=== PATIENT | female | born 1960 | race Caucasian/White ===

== ENCOUNTER → 2016-10-24 | Outpatient (CLI) | payer BC ==
[~2016-10-24] MED LIST: ASPIRIN EC81 MG PO; DEPAKOTE DELAY250 MG PO
--- NOTE | ~2016-10-24 | ESTC ---
Cardiac Perfusion Imaging Demographics Patient Name IRLANDA Goodrich Gender Female Patient Number [id number] Race Visit Number [id number] Ethnicity Corporate ID Room Number Accession Number [id number] Height 66 inches Date of 1960 Weight 195 pounds Heike Lucas MD Interpreting Ysabel Mcpherson MD Date of study 10/24/2016 Physician Supervising /ANAYA [place] Technologist Jono Santos APRN Ordering Physician Ysabel Mcpherson MD Stress production maintenance technician Stress ECG Reading Adal [place] Nurse Chris Charlie Physician IRVIN Medications Reviewed with Patient prior to Procedure. Procedure Procedure Type: Nuclear Stress Test:Pharmacological, Lexiscan, Cardiolite Stress Test Procedure Start time: 10/24/2016 09:19 Indications: Chest discomfort. Risk Factors The patient risk factors include:family history of premature CAD. Conclusions Summary Cardiolite SPECT images demonstrates an inducible reversible defect of moderate severity involving the mid to distal anterior wall . NO evidence of underlying fixed defect. Normal TID ratio Gated images demonstrate normal left ventricular systolic function without inducible wall motion abnormalities. LVEF is 75% Stress Protocols Resting ECG RSR without ST or T wave changes. There are Q waves noted in Lead II, III, AVF V5, V6. Resting HR:90 bpm Resting BP:134/70 mmHg Pre-stress physical exam: Complains of intermittent chest pain with or without ST or T wave changes. Stress Protocol:Pharmacologic Peak HR:130 bpm HR response: Appropriate Peak BP:138/77 mmHg BP response: Appropriate Predicted HR: 164 bpm HR/BP product:52363 % of predicted HR: 79 Reason for termination:Infusion complete ECG Findings No ECG changes suggestive of ischemia. Symptoms Nausea, Flushing, mild shortness of breath. Stress Interpretation Appropriate hemodynamic response to Lexiscan. No significant ST-T wave changes with Lexiscan. ECG portion is negative for ischemia by diagnostic criteria. Stress supervision and interpretation provided by Jayne Galeas APRN . Imaging Results Summed scores - Summed stress score: 16 - Summed rest score: 0 - Summed difference score: 16 Stress ejection Ejection fraction:75 % EDV :88 ml ESV :22 ml Stroke volume :66 ml LV mass :126 gr Imaging Protocols Rest Stress Isotope:Tc99m Sestamibi IV Isotope: Tc99m Sestamibi IV Isotope dose:13.4 mCi Isotope dose:42.7 mCi Date:10/24/2016 07:33 Date:10/24/2016 09:44 Technique: SPECT Technique: Gated Supine SPECT Supine Scan Time:45-60 minutes post Scan Time:45-60 minutes post injection injection Procedure Medications - Regadenoson (Lexiscan) 0.4 mg IV over 10-15 sec. I.V. 0.4 mg. Medications administered per verbal order and read back to physician prior to administration. Medical History Admission Data Admission date: 10/24/2016 Admission Time: 07:02 Hospital Status: Outpatient. Signatures dtt: Ky Grady (cardio) dtd: 10/24/16 0919 Physician Self Edit
== END ==
LOC: GRAD 07:02
DX: R07.89 Other chest pain (principal); Z79.899 Other long term (current) drug therapy; Z82.49 Family history of ischemic heart disease and other diseases of the circulatory system; G40.909 Epilepsy, unspecified, not intractable, without status epilepticus; F39 Unspecified mood [affective] disorder
CPT/HCPCS: A9500; J2785

== ENCOUNTER 2016-11-08 05:58 | Outpatient (CLI) | payer BC ==
[~2016-11-08] VITALS: Ht 167.6 cm; Wt 84.9 kg
--- NOTE | ~2016-11-08 | CATH ---
Cardiac Diagnostic Report Demographics Patient Name IRLANDA Goodrich Gender Female Date of 1960 Age 56 year(s) Patient Number [id number] Date of Study 11/08/2016 Visit Number [id number] Room Number G63[address] [place] [id number] Ht 167.64 cm Wt 84.9 kg Referring Ysabel Mcpherson MD Primary Physician Physician Heike Lucas MD Performing Ysabel Mcpherson MD Secondary Physician Physician Diagnostic Ysabel Mcpherson MD Assisting Physician Physician Interventional Physician Scheduling Manager Physician Findings and Conclusions Diagnostic Findings and Conclusion Nonobstructive CAD. Normal LV function. Diagnostic Recommendations Medical therapy. Routine post Perclose. Procedure Description The patient was brought to the diagnostic cardiac catheterization-EP laboratory in the fasting, non-sedated state. Informed consent was obtained in the written and verbal form after the risks and benefits were explained. The patient had no further questions and agreed to proceed. The planned puncture-incision site(s) were shaved and prepped with ChloraPrep and draped in the usual sterile manner. Conscious sedation, supplemental oxygen, and pain control medications were delivered by a registered nurse under physician guidance. Surface ECG rhythm, blood pressure measurement, and pulse oximetry were monitored throughout the procedure. Arterial access. The access site was infiltrated with lidocaine. The vessel was entered with the Seldinger technique. A sheath was advanced into the vessel and used for catheter placement. Selective left coronary angiography. A catheter was advanced into the left coronary vessel ostium under Fluoroscopic guidance. Contrast was injected by hand. Images were obtained in multiple projections. Selective right coronary angiography. A catheter was advanced into the right coronary vessel ostium under fluoroscopic guidance. Contrast was injected by hand. Images were obtained in multiple projections. Left heart catheterization with ventriculography. A catheter was advanced across the aortic valve to the left ventricle under fluoroscopic guidance. Resting hemodynamics were obtained. With the catheter at the left ventricular apex, contrast was injected. Images were obtained in MONGOLIAN projections. Post-ventriculography LV pressure was obtained. The catheter was gradually withdrawn into the aorta with continuous pressure recording. Arterial artery hemostasis was achieved. The patient was transferred to a regular nursing floor via cart accompanied by a nurse. The patient left the laboratory in stable condition. Diagnostic Cath Status: Elective Procedure Procedure Type Diagnostic procedure:Ventriculogram:, Left, Angiography:, Coronary Angios w/[facility] Indications: Positive nuclear perfusion study. The procedure was explained in detail to the patient. Risks, complications and alternative treatments were reviewed. Written consent was obtained. Medications Reviewed with Patient prior to Procedure. Angiographic Findings Dominance: Right Cardiac Arteries and Lesion Findings LMCA: Normal (0% Stenosis).Large LAD: Normal (0% Stenosis).LAD medium, normal. Diagonal medium, normal. LCx: Normal (0% Stenosis).Circumflex nondominant, medium, normal. OM 1 large, normal. RCA: Normal (0% Stenosis).RCA large, dominant, normal. PL medium, normal. PDA medium, normal. Procedure Data Procedure Date Date: 11/08/2016Start: 07:44 AMEnd: 08:10 AM Entry Locations - Retrograde Percutaneous access was performed through the Right Femoral artery (Primary location). A 6 Fr sheath was inserted. Hemostasis was successfully obtained using Perclose ProGlide ([employer]). Closure Comments: Successfully deployed by Kyle.. Procedure Medications Order and Administration + + +-------+------+ !Time !Medication !Dosage !Route ! + + +-------+------+ !11/08/2016 07:42 AM !Versed !1 mg !I.V. ! + + +-------+------+ !11/08/2016 07:50 AM !Fentanyl !25 mcg !I.V. ! + + +-------+------+ !11/08/2016 07:57 AM !Fentanyl !50 mcg !I.V. ! + + +-------+------+ Devices Used - A6 Fr. BS JL 3.5 Diag. Catheterwas used for:Left coronary angiography. - A6 Fr. BS JR 4 Diag. Catheterwas used for:Right coronary angiography. - A6 Fr. BS Angled Pigtail Diag. Catheterwas used for:Left ventriculography. Contrast Material - Isovue 83682 ml Fluoroscopy Time: Diagnostic: 3:06 minutes. Total: 3:06 minutes. Fluoroscopy Dose: Diagnostic: 627 mGy. Total: 627 mGy. Estimated Blood Loss: 4 ml. Medical History Allergies - No known allergies. Risk Factors The patient risk factors include:last creatinine: 0.8 mg/dl and creatinine clearance: 105.24 ml/min. Admission Data Admission Date: 11/08/2016 Admission Time: 05:58 AM Admit Source: Other Insurance Payors: Private health insurance. Admission Medications + +------+-------+ + + + + !Medication!Dosage!Times !Last !Last !Administered !Comments ! ! ! !Per Day!Delivery !Delivery ! ! ! ! ! ! !Date !Time ! ! ! + +------+-------+ + + + + !Aspirin ! ! ! ! !Yes ! ! !(any) ! ! ! ! ! ! ! + +------+-------+ + + + + Clinical Evaluation Leading to Procedure - The patient's CAD presentation was assessed as: Unstable angina. - The patient's anginal syndrome during the past two weeks was assessed as: Class III according to the [place] Cardiovascular Society Classification System (CCS). [facility] Ventriculography Findings Hyperdynamic EF. LV function assessed as:Normal. Ejection Fraction - Method: LV gram. EF%: 75. Hemodynamics Condition: Rest O2 Consumption: Estimated: 196.82Heart Rate: 85 bpm Pressures (mmHg) +-----+ + !Site !Pressure ! +-----+ + !AO !118/65 (90) ! +-----+ + !AO !122/68 (95) ! +-----+ + !LV !124/0 ,17 ! +-----+ + !LV !124/0 ,19 ! +-----+ + !LV !116/1 ,18 ! +-----+ + !LV !119/0 ,15 ! +-----+ + Shunts Oxygen Values O2 Capacity 208.08 O2 Consumption 196.82 Discharge Data Discharge Date: 11/09/2016 Hospital Status: Outpatient Signatures dtt: Ky Grady (cardio) dtd: 11/08/16 0744 Physician Self Edit
--- NOTE | ~2016-11-08 | HP ---
PATIENT'S NAME: MILLICENT FOURNIERLA Kp [facility] AGE: 56 Y [address] ROOM: [place] [address] LOCATION: GPCU ADMIT DATE: 11/08/2016 History & Physical DISCHARGE DATE: 11/09/2016 FAMILY PHYSICIAN: Rome Burroughs MD ATTENDING PHYSICIAN: Ky Salcido DATE OF SERVICE: REASON FOR CONSULT: Syncope. HISTORY OF PRESENT ILLNESS: This is a 56-year-old female who underwent a left heart catheterization on date of admission, which showed nonobstructive coronary artery disease and normal LV function. After her long bed rest, she got up and had a vasovagal syncopal episode. Her heart rate and blood pressure were low. She was instructed to rest again for a little while, drink plenty of fluids, and had a 2nd episode when she got up to go to the bathroom, therefore she was admitted to the hospital and received IV fluids. She denies any palpitations with these episodes. She has never had presyncope or syncopal episodes prior this. PAST MEDICAL HISTORY: 1. Nonobstructive coronary artery disease with normal ejection fraction. 2. Palpitations. 3. Uterine cancer. 4. Seizure disorder. 5. Mood disorder. PAST SURGICAL HISTORY: She had a left heart catheterization 11/08/2016. ALLERGIES: NONE TO MEDICATION. CURRENT MEDICATIONS: Aspirin 81 mg daily, Depakote 250 mg p.o. b.i.d. SOCIAL HISTORY: She is a nonsmoker. She does not have problems with depression at this time. She uses alcohol socially. She is . She does not have any children. FAMILY HISTORY: Father at 73, he had a CVA, he had a history of hypertension, rheumatoid arthritis. Mother at age 73. She had hypertension and of "lung problems." Paternal grandmother had diabetes mellitus. She has three PATIENT'S NAME: MILLICENT FOURNIERLA Kp [facility] AGE: 56 Y [address] ROOM: [place] [address] LOCATION: GPCU ADMIT DATE: 11/08/2016 History & Physical DISCHARGE DATE: 11/09/2016 FAMILY PHYSICIAN: Rome Burroughs MD ATTENDING PHYSICIAN: Salcido,Ky J brothers, the oldest brother has hypertension and the other two brothers are alive and well. REVIEW OF SYSTEMS: HEAD: No history of headache. EYES: No blurred vision or double vision. EARS: No problems with hearing. NOSE: No epistaxis or rhinorrhea. MOUTH: No gingival bleeding. THROAT: Denies sore throat, hoarseness, or difficulty swallowing. PULMONARY: She denies cough or hemoptysis. CV: As per HPI. GI: Negative for nausea, vomiting, or diarrhea. No melena or hematochezia. No history of GI bleed. GENITOURINARY: Negative for urinary frequency or urgency. No nocturia or frequent urination. ENDOCRINE: No history of hyper or hypothyroidism or diabetes mellitus. NEUROLOGIC: She has had a vasovagal syncopal episode x2. There was no seizure activity noted. She does have a history of seizures, last one has been many years ago. DERMATOLOGIC: No skin, hair, or nail changes that are concerning. HEMATOLOGIC: No history of anemia, leukemia, or cancer. MUSCULOSKELETAL: She denies arthralgias, myalgias, or musculoskeletal disorders. PHYSICAL EXAMINATION: VITAL SIGNS: Her height is 66 inches tall. She weighs 193 pounds. Blood pressure is 106/70, heart rate 77, respirations 18, O2 sats 97%. Her BMI is 31. GENERAL: On exam, she is alert and oriented. Answers questions appropriately. SKIN: Warm, dry, and pink. HEENT: Pupils equal, round, and react briskly. Nose is non-deviated. Oral mucosa is pink and moist. NECK: Soft and supple. No lymphadenopathy. No thyromegaly. JVD is flat. LUNGS: Lung sounds were clear without evidence of wheezes, rales, or rhonchi. CV: Regular with a normal S1, S2 without murmur, rub, or click. ABDOMEN: Soft. Bowel sounds are present. EXTREMITIES: No peripheral edema. No clubbing. No cyanosis. LAB: Prior to her heart catheterization showed a hemoglobin of 15.3, BUN was 30, creatinine 0.8. Sodium 140, potassium was 4.1. ASSESSMENT: PATIENT'S NAME: YADIRA FOURNIER [facility] AGE: 56 Y [address] ROOM: [place] [address] LOCATION: GPCU ADMIT DATE: 11/08/2016 History & Physical DISCHARGE DATE: 11/09/2016 FAMILY PHYSICIAN: Rome Burroughs MD ATTENDING PHYSICIAN: Ky Salcido 1. Vasovagal syncope. We did do orthostatic blood pressures lying 133/69 with a heart rate of 88, sitting 135/65 with a heart rate of 104, standing 136/71 with heart rate of 103. We are going to start normal saline 125 mL an hour. Watch her overnight and continue with her home medications and further recommendations will be forthcoming. The assessment and plan, history of present illness, and physical exam are per Dr. Salcido. DARREN AMARO APRN FOR KY SACLIDO MD TGP/modl /[id number] D: [id number] T: [id number] HISTORY & PHYSICAL
[2016-11-08 18:24] LABS: HEMATOCRIT 42.7 % (33.0-46.0)
== END 2016-11-09 08:45 | disposition disaster alternative care site (69) ==
LOC: GCAT 05:58 → GPCU 05:58 → GPOC 06:00 → GPCU 14:00 → GCAT 11-09 08:45
PROVIDERS: Internal Medicine Interventional Cardiology
PROC: 4A023N7 Measurement of Cardiac Sampling and Pressure, Left Heart, Percutaneous Approach (ICD-10-PCS; principal; 2016-11-09)
PROC: B216YZZ Fluoroscopy of Right and Left Heart using Other Contrast (ICD-10-PCS; 2016-11-09)
DX: R07.9 Chest pain, unspecified (principal)
CPT/HCPCS: C1760; J1644; J2001; J2250; J3010; J7030